=== PATIENT | female | born 1940 | race Caucasian/White ===

== ENCOUNTER 2018-12-14 12:15 | Inpatient (IN) | payer OTHER, MEDICAID ==
[~2018-12-14] VITALS: Ht 177.8 cm; Wt 71.7 kg
[~2018-12-14 12:15] MED LIST: ASPI-650 PO; ATOR20TA17 PO; ENOX40DI2 SC; HYDR-3601 PO; LISI-471 PO
[2018-12-14 16:05] VITALS: Ht 177.8 cm; Wt 71.7 kg
[2018-12-14 16:30] VITALS: BP 185/79; PULSE 69; RESP 20
[2018-12-14] MEDS: hydrALAzine 20 MG INJ IV PRN (17:00)
[2018-12-14] MEDS: HYDROmorphONE 0.5 MG/0.5 ML SYG IV PRN ×2 (17:00→22:13)
[2018-12-14] MEDS ORDERED: ZOLPIDEM 5 MG TAB PO PRN (17:00)
[2018-12-14] MEDS ORDERED: MAGNESIUM HYDROXIDE 30ML CUP PO PRN (17:00)
[2018-12-14] MEDS ORDERED: DOCUSATE SODIUM 100 MG CAP PO PRN (17:00)
[2018-12-14] MEDS ORDERED: ONDANSETRON 4 MG INJ IV PRN (17:00)
[2018-12-14] MEDS ORDERED: NACL 0.9% 3 ML SYG IV SCH (17:00)
[2018-12-14] MEDS ORDERED: ACETAMINOPHEN 325 MG TAB PO PRN (17:00)
[2018-12-14] MEDS: SOD CHLORIDE 0.9% 1,000 ML IV SCH (17:19)
[2018-12-14 17:25] VITALS: BP 110/49; PULSE 70
[2018-12-14 20:03] VITALS: BP 120/59; PULSE 70; RESP 18
[2018-12-14] MEDS: CIPROFLOXACIN 400MG/D5W 200 ML IVPB SCH (22:11)
[2018-12-14] MEDS: FAMOTIDINE 20 MG TAB PO SCH (22:12)
[2018-12-14] MEDS: HEPARIN 5,000 UNIT/1 ML VIAL SC SCH (22:27)
[2018-12-14] MEDS: metroNIDAZOLE 500 MG/NS (PMX) 100 ML IVPB SCH (23:16)
[2018-12-15 02:54] VITALS: BP 124/59; PULSE 61; RESP 18
[2018-12-15] MEDS: metroNIDAZOLE 500 MG/NS (PMX) 100 ML IVPB SCH ×3 (06:37→23:03)
[2018-12-15] MEDS: SOD CHLORIDE 0.9% 1,000 ML IV SCH ×2 (06:37→12:44)
[2018-12-15 08:08] VITALS: BP 145/87; PULSE 82; RESP 18
[2018-12-15] MEDS: CIPROFLOXACIN 400MG/D5W 200 ML IVPB SCH ×2 (08:54→21:23)
[2018-12-15] MEDS: HEPARIN 5,000 UNIT/1 ML VIAL SC SCH ×2 (08:58→21:33)
[2018-12-15 13:25] VITALS: BP 174/72; PULSE 65; RESP 18
[2018-12-15] MEDS: hydrALAzine 20 MG INJ IV PRN (13:27)
[2018-12-15] MEDS ORDERED: HARD FAT/PHENYLEPHRINE SUPP PR PRN (14:00)
[2018-12-15 14:15] VITALS: BP 137/78
[2018-12-15] MEDS: HYDROmorphONE 0.5 MG/0.5 ML SYG IV PRN ×2 (15:16→22:20)
[2018-12-15] MEDS ORDERED: SKIN RESP FACT/SHARK/PH MERCU SUPP PR PRN (16:30)
[2018-12-15 20:52] VITALS: BP 121/63; PULSE 90; RESP 18
[2018-12-15] MEDS: FAMOTIDINE 20 MG TAB PO SCH (21:24)
[2018-12-16] MEDS: SOD CHLORIDE 0.9% 1,000 ML IV SCH ×2 (01:42→08:44)
[2018-12-16 02:30] VITALS: BP 132/73; PULSE 87; RESP 18
[2018-12-16] MEDS: metroNIDAZOLE 500 MG/NS (PMX) 100 ML IVPB SCH (05:56)
[2018-12-16 07:58] VITALS: BP 122/64; PULSE 84; RESP 19
[2018-12-16] MEDS: CIPROFLOXACIN 400MG/D5W 200 ML IVPB SCH (09:20)
[2018-12-16] MEDS: HEPARIN 5,000 UNIT/1 ML VIAL SC SCH ×2 (09:25→21:00)
[2018-12-16] MEDS: HYDROmorphONE 0.5 MG/0.5 ML SYG IV PRN ×2 (10:33→22:12)
[2018-12-16 16:25] VITALS: BP 126/62; PULSE 92; RESP 19
[2018-12-16 19:58] VITALS: BP 184/76; PULSE 69; RESP 18
[2018-12-16] MEDS: FAMOTIDINE 20 MG TAB PO SCH (20:30)
[2018-12-16] MEDS: hydrALAzine 20 MG INJ IV PRN (20:33)
[2018-12-17] VITALS (18 sets, daily range): BP systolic 105–179; BP diastolic 41–76; PULSE 74–94; RESP 18–24
[2018-12-17] MEDS: HEPARIN 5,000 UNIT/1 ML VIAL SC SCH (08:06)
[2018-12-17] MEDS: HYDROmorphONE 0.5 MG/0.5 ML SYG IV PRN (09:00)
[2018-12-17] MEDS: hydrALAzine 20 MG INJ IV PRN (09:46)
[2018-12-17] MEDS ORDERED: BUPIVACAINE 0.25%/EPI (SDV) 10 ML INJ ONE (15:09)
[2018-12-17] MEDS ORDERED: LIDOCAINE 1% (MPF) 30 ML INJ ONE (15:09)
[2018-12-17] MEDS ORDERED: HYDROmorphONE 0.5 MG/0.5 ML SYG IV PRN (16:00)
[2018-12-17] MEDS ORDERED: EPHEDrine 25 MG/5 ML SYG ONE (16:00)
[2018-12-17] MEDS ORDERED: ACETAMINOPHEN 325 MG TAB PO PRN (16:00)
[2018-12-17] MEDS ORDERED: ONDANSETRON 4 MG INJ IV PRN ×2 (16:00→17:30)
[2018-12-17] MEDS ORDERED: LIDOCAINE 2% (SDV) 5 ML INJ ONE (16:03)
[2018-12-17] MEDS ORDERED: PROPOFOL 20 ML ONE (16:03)
[2018-12-17] MEDS ORDERED: FENTAnyl 50 MCG/ML VIAL ONE (16:04)
[2018-12-17] MEDS ORDERED: MIDAZOLAM 1 MG/ML 2 ML INJ ONE (16:16)
[2018-12-17] MEDS ORDERED: ROCURONIUM 50 MG INJ ONE (16:29)
[2018-12-17] MEDS ORDERED: SUCCINYLCHOLINE CHLORIDE 100 MG/5 ML SYG IV ONE (16:29)
[2018-12-17] MEDS ORDERED: ONDANSETRON 4 MG INJ ONE ×2 (16:29→16:34)
[2018-12-17] MEDS ORDERED: FAMOTIDINE 20 MG INJ ONE (16:30)
[2018-12-17] MEDS ORDERED: PHENYLephrine (100 MCG/ML) 10ML SYG ONE (16:31)
[2018-12-17] MEDS ORDERED: ROPIVACAINE 0.5 % 30 ML VIAL ONE (16:36)
[2018-12-17] MEDS ORDERED: SUGAMMADEX SODIUM 200 MG/2 ML VIAL IV ONE (16:47)
[2018-12-17] MEDS ORDERED: MEPERIDINE 25 MG INJ IV PRN (17:30)
[2018-12-17] MEDS ORDERED: LABETALOL HCL 20MG INJ IV PRN (17:30)
[2018-12-17] MEDS: HYDROmorphONE 1 MG/5 ML IV SYRINGE IV PRN ×2 (17:30→17:51)
[2018-12-17] MEDS ORDERED: HYDROmorphONE 1 MG/5 ML IV SYRINGE IV PRN (17:30)
[2018-12-17] MEDS ORDERED: FENTAnyl 50 MCG/ML VIAL IV PRN (17:30)
[2018-12-17] MEDS ORDERED: DIPHENHYDRAMINE 50 MG INJ IV PRN (17:30)
[2018-12-17] MEDS ORDERED: hydrALAzine 20 MG INJ IV PRN (17:30)
[2018-12-17] MEDS ORDERED: PROCHLORPERAZINE 10 MG INJ IV PRN (17:30)
[2018-12-17] MEDS: D5-NS + KCL 20 MEQ 1,000 ML IV SCH (19:16)
[2018-12-17] MEDS: FAMOTIDINE 20 MG TAB PO SCH (20:39)
[2018-12-18] MEDS: HYDROCODONE/APAP (5/325) TAB PO PRN ×3 (00:07→17:12)
[2018-12-18 02:25] VITALS: BP 134/60; PULSE 69; RESP 20
[2018-12-18] MEDS: D5-NS + KCL 20 MEQ 1,000 ML IV SCH (06:07)
[2018-12-18] MEDS ORDERED: ENOXAPARIN 40 MG/0.4 ML SYG SC SCH (07:00)
[2018-12-18 08:10] VITALS: BP 188/74; PULSE 65; RESP 18
[2018-12-18] MEDS: hydrALAzine 20 MG INJ IV PRN (08:22)
[2018-12-18 10:18] VITALS: BP 118/53; PULSE 77; RESP 18
[2018-12-18] MEDS ORDERED: LORAZEPAM 1 MG TAB PO ONE (17:08)
[2018-12-18 17:18] VITALS: BP 153/67; PULSE 90; RESP 18
== END 2018-12-18 18:45 | DRG 419 ==
LOC: MS1 15:54
PROVIDERS: ADMIT Internal Medicine; ATTEND Internal Medicine
PROC: 0FT44ZZ Resection of Gallbladder, Percutaneous Endoscopic Approach (ICD-10-PCS; principal; 2018-12-17 15:30)
DX: K80.64 Calculus of gallbladder and bile duct with chronic cholecystitis without obstruction (principal); E78.5 Hyperlipidemia, unspecified; I73.9 Peripheral vascular disease, unspecified; I25.10 Atherosclerotic heart disease of native coronary artery without angina pectoris; I10 Essential (primary) hypertension; J45.909 Unspecified asthma, uncomplicated; I16.0 Hypertensive urgency; Z95.1 Presence of aortocoronary bypass graft
CPT/HCPCS: 74181; 78226; 80053; 80076; 83036; 83690; 83735; 84100; 84484; 85025; 86704; 86709; 86803; 87340; 88304; 93306; 93922; A9537; J0360; J0744; J1170; J1644; J1650; J2175; J2250; J2370; J2405; J2795; J3010; J3480; J7030

== ENCOUNTER 2018-12-29 19:19 | Inpatient (IN) | payer OTHER, MEDICAID ==
[~2018-12-29] VITALS: Ht 177.8 cm; Wt 67.1 kg
[2018-12-29] MEDS ORDERED: NITROGLYCERIN 2% 1 GM OINT PKT TD STA (19:52)
[2018-12-29] MEDS ORDERED: ASPIRIN 325 MG TAB PO STA (19:52)
[2018-12-29] MEDS ORDERED: ACETAMINOPHEN 325 MG TAB PO PRN (21:30)
[2018-12-29] MEDS ORDERED: ONDANSETRON 4 MG INJ IV PRN ×2 (21:30→22:00)
[2018-12-29] MEDS ORDERED: IOHEXOL 300MG/ML 150 ML BTL ONE (21:55)
[2018-12-29] MEDS ORDERED: SOD CHLORIDE 0.9% 100 ML ONE (21:55)
[2018-12-29] MEDS ORDERED: NACL 0.9% 3 ML SYG IV SCH (22:00)
[2018-12-29] MEDS ORDERED: LORAZEPAM 2 MG INJ IV ONE (22:00)
[2018-12-29] MEDS: FAMOTIDINE 20 MG TAB PO SCH (22:00)
[2018-12-29 23:53] VITALS: BP 178/81; PULSE 66; RESP 22
[2018-12-30] VITALS (7 sets, daily range): BP systolic 141–202; BP diastolic 63–87; PULSE 56–77; RESP 17–20; Ht 177.8 cm; Wt 67.1 kg
[2018-12-30] MEDS: NS + KCL 20 MEQ 1,000 ML IV SCH ×2 (01:50→15:33)
[2018-12-30] MEDS: HYDROCODONE/APAP (5/325) TAB PO PRN (02:05)
[2018-12-30] MEDS: ASPIRIN 81 MG TAB PO SCH (09:11)
[2018-12-30] MEDS: ATORVASTATIN 20 MG TAB PO SCH (09:11)
[2018-12-30] MEDS: FAMOTIDINE 20 MG TAB PO SCH ×2 (09:11→21:00)
[2018-12-30] MEDS: ENOXAPARIN 40 MG/0.4 ML SYG SC SCH (09:22)
[2018-12-30] MEDS ORDERED: LORAZEPAM 2 MG INJ IV SCH (10:30)
[2018-12-30] MEDS: hydrALAzine 20 MG INJ IV PRN (20:35)
[2018-12-31] MEDS: LISINOPRIL 20 MG TAB PO SCH ×2 (00:50→08:44)
[2018-12-31 04:08] VITALS: BP 107/55; PULSE 69; RESP 16
[2018-12-31] MEDS: HYDROCODONE/APAP (5/325) TAB PO PRN ×2 (04:37→08:44)
[2018-12-31] MEDS: ACETAMINOPHEN 325 MG TAB PO PRN (04:40)
[2018-12-31] MEDS: NS + KCL 20 MEQ 1,000 ML IV SCH ×2 (04:46→12:52)
[2018-12-31 07:32] VITALS: BP 117/57; PULSE 57; RESP 19
[2018-12-31] MEDS: ASPIRIN 81 MG TAB PO SCH (08:43)
[2018-12-31] MEDS: FAMOTIDINE 20 MG TAB PO SCH ×2 (08:44→21:32)
[2018-12-31] MEDS: ATORVASTATIN 20 MG TAB PO SCH (08:44)
[2018-12-31] MEDS: ENOXAPARIN 40 MG/0.4 ML SYG SC SCH (08:52)
[2018-12-31 11:25] VITALS: BP 173/60; PULSE 55; RESP 18
[2018-12-31] MEDS: DOCUSATE SODIUM 100 MG CAP PO PRN (11:56)
[2018-12-31] MEDS ORDERED: LORAZEPAM 2 MG INJ IV ONE (12:30)
[2018-12-31 15:43] VITALS: BP 198/74; PULSE 53; RESP 19
[2018-12-31 20:06] VITALS: BP 127/60; PULSE 51; RESP 18
[2019-01-01] VITALS (25 sets, daily range): BP systolic 105–198; BP diastolic 39–130; PULSE 52–90; RESP 12–21
[2019-01-01] MEDS: NS + KCL 20 MEQ 1,000 ML IV SCH (02:47)
[2019-01-01] MEDS: DOCUSATE SODIUM 100 MG CAP PO PRN ×2 (04:53→20:19)
[2019-01-01] MEDS: LISINOPRIL 20 MG TAB PO SCH (08:09)
[2019-01-01] MEDS: FAMOTIDINE 20 MG TAB PO SCH ×2 (08:09→20:16)
[2019-01-01] MEDS: ASPIRIN 81 MG TAB PO SCH (08:09)
[2019-01-01] MEDS: ATORVASTATIN 20 MG TAB PO SCH (08:10)
[2019-01-01] MEDS: ENOXAPARIN 40 MG/0.4 ML SYG SC SCH (08:12)
[2019-01-01] MEDS: ACETAMINOPHEN 325 MG TAB PO PRN (09:11)
[2019-01-01] MEDS ORDERED: LORAZEPAM 2 MG INJ IV PRN (10:00)
[2019-01-01] MEDS ORDERED: hydrALAzine 20 MG INJ IV ONE (10:00)
[2019-01-01] MEDS: DEXTROSE 5%-0.45% NACL 1,000 ML IV SCH ×2 (10:11→22:30)
[2019-01-01] MEDS ORDERED: INDOMETHACIN 50 MG SUPP PR ONE (15:00)
[2019-01-01] MEDS: hydrALAzine 20 MG INJ IV PRN (16:20)
[2019-01-01] MEDS ORDERED: PROPOFOL 20 ML ONE (17:00)
[2019-01-01] MEDS ORDERED: LIDOCAINE 2% (SDV) 5 ML INJ ONE (17:00)
[2019-01-01] MEDS ORDERED: ROCURONIUM 50 MG INJ ONE (17:00)
[2019-01-01] MEDS ORDERED: ONDANSETRON 4 MG INJ ONE (17:19)
[2019-01-01] MEDS ORDERED: DEXAMETHASONE 4 MG/ML 5 ML INJ ONE (17:19)
[2019-01-01] MEDS ORDERED: SUGAMMADEX SODIUM 200 MG/2 ML VIAL IV ONE (18:11)
[2019-01-01] MEDS ORDERED: ALBUTEROL 0.083% (NEB) 2.5 MG/3 ML AMP HHN PRN (18:30)
[2019-01-01] MEDS ORDERED: FENTAnyl 50 MCG/ML VIAL IV PRN ×2 (18:30)
[2019-01-01] MEDS ORDERED: METOCLOPRAMIDE 10 MG INJ IV PRN (18:30)
[2019-01-01] MEDS ORDERED: EPHEDrine 25 MG/5 ML SYG IV PRN (18:30)
[2019-01-01] MEDS ORDERED: hydrALAzine 20 MG INJ IV PRN (18:30)
[2019-01-01] MEDS ORDERED: MEPERIDINE 25 MG INJ IV PRN (18:30)
[2019-01-01] MEDS ORDERED: OXYCODONE/ACETAMINOPHEN (5/325) TAB PO PRN ×2 (18:30)
[2019-01-01] MEDS ORDERED: ONDANSETRON 4 MG INJ IV PRN (18:30)
[2019-01-01] MEDS ORDERED: DIPHENHYDRAMINE 50 MG INJ IV PRN (18:30)
[2019-01-01] MEDS ORDERED: MIDAZOLAM 1 MG/ML 2 ML INJ IV PRN (18:30)
[2019-01-01] MEDS ORDERED: LABETALOL HCL 20MG INJ IV PRN (18:30)
[2019-01-01] MEDS: HYDROCODONE/APAP (5/325) TAB PO PRN (22:50)
[2019-01-02 00:17] VITALS: BP 134/51; PULSE 94; RESP 18
[2019-01-02 04:13] VITALS: BP 132/56; PULSE 79; RESP 18
[2019-01-02 07:33] VITALS: BP 158/72; PULSE 82; RESP 17
[2019-01-02] MEDS: ATORVASTATIN 20 MG TAB PO SCH (08:48)
[2019-01-02] MEDS: ASPIRIN 81 MG TAB PO SCH (08:48)
[2019-01-02] MEDS: FAMOTIDINE 20 MG TAB PO SCH (08:48)
[2019-01-02] MEDS: LISINOPRIL 20 MG TAB PO SCH (08:59)
[2019-01-02] MEDS: ENOXAPARIN 40 MG/0.4 ML SYG SC SCH (09:12)
[2019-01-02 11:53] VITALS: BP 117/57; PULSE 74; RESP 20
[2019-01-02] MEDS ORDERED: POLYETHYLENE GLYCOL 17 GM PACKET PO SCH (15:30)
[2019-01-02 15:46] VITALS: BP 121/59; PULSE 67; RESP 20
== END 2019-01-02 20:41 | disposition home health service (06) | DRG 446 ==
LOC: E/R 19:19 → TEL 21:31 → CANRESERV 23:02
PROVIDERS: ADMIT Internal Medicine; ATTEND Internal Medicine
PROC: BF10YZZ Fluoroscopy of Bile Ducts using Other Contrast (ICD-10-PCS; 2019-01-01)
PROC: 0FC98ZZ Extirpation of Matter from Common Bile Duct, Via Natural or Artificial Opening Endoscopic (ICD-10-PCS; principal; 2019-01-01 16:30)
DX: K80.50 Calculus of bile duct without cholangitis or cholecystitis without obstruction (principal); E11.9 Type 2 diabetes mellitus without complications; F02.80 Dementia in other diseases classified elsewhere, unspecified severity, without behavioral disturbance, psychotic disturbance, mood disturbance, and anxiety; G30.9 Alzheimer's disease, unspecified; E80.6 Other disorders of bilirubin metabolism; I25.10 Atherosclerotic heart disease of native coronary artery without angina pectoris; I10 Essential (primary) hypertension; E78.5 Hyperlipidemia, unspecified; F41.9 Anxiety disorder, unspecified; J45.909 Unspecified asthma, uncomplicated; Z79.82 Long term (current) use of aspirin; Z95.1 Presence of aortocoronary bypass graft; Z90.49 Acquired absence of other specified parts of digestive tract
CPT/HCPCS: 36415; 71045; 74177; 74181; 74330; 80048; 80053; 80076; 82550; 82553; 83036; 83690; 84443; 84484; 85025; 86038; 86255; 93005; 97161; J0360; J1100; J1200; J1650; J2060; J2405; J3010; J3480; J7042; Q9967